=== PATIENT | female | born 1995 | race Caucasian/White ===

== ENCOUNTER 2023-02-04 09:34 | Inpatient (IN) | payer OTHER ==
[~2023-02-04] VITALS: Ht 170.2 cm; Wt 83.2 kg
[2023-02-04] VITALS (41 sets, daily range): BP systolic 98–150; BP diastolic 54–95; PULSE 60–104; TEMP 98.1–99.3
--- NOTE | 2023-02-04 09:40 | NUR ---
Pt arrived on unit ambulatory and with concerns for SROM at 0530 with clear fluid at 0530 this morning. Pt reports contractions starting shortly after SROM and now every 5 minutes with some vaginal bleeding on her george-pad. Pt also reports normal movement. EFM and toco monitors started. Vital signs WNL. SVE by this RN 260/-2 with positive amniotrace and bloody show on exam. Dr. Joseph notified. See physician notificaiton for details.
[2023-02-04] MEDS ORDERED: PRENATAL (09:53)
--- NOTE | 2023-02-04 10:10 | NUR ---
Labor plan of care reviewed with pt and at the bedside. Also reviewed Dr. Joseph's recommendation to start pitocin infusion per augmentation protocol. Pt and both verbalized an understanding, agreed with the plan and states no questions or concerns at this time.
--- NOTE | 2023-02-04 10:20 | NUR ---
1020Thikrysten RN assumes care of pt from Maryan Moscoso RN. Bedside report received. Plan of care discussed with pt who verbalizes understanding. 1030Consent forms explained and signed. 1036Audible variable FHR decel to 70bmp, spontaneous return to baseline. Pt wedge left. 1040IV to left FA. Routine labs obtained. LR infusing. 1052Pitocin reviewed with pt and started at 2mu per orders. Pt resting with call light within reach. 1200Pt noted to be breathing through contractions. Unble to speak with contractions. Requesting epidural. LR bolus initiated. Deniz Gallegos FAM[facility] CENTER DIRECTOR notified.
[2023-02-04 11:00] LABS: BASO % 0.4 % (0.0-2.0); EOS # 0.2 K/mm3 (0.0-0.7); EOS % 1.7 % (0.0-4.0); GRAN # 8.3 K/mm3 (1.4-6.5); GRAN % 78.1 % (42.2-75.2); HEMOGLOBIN 12.3 g/dl (12.5-16.0); LYMPH # 1.2 K/mm3 (1.2-3.4); LYMPH % 11.4 % (20.0-51.0); MEAN CELL VOLUME 93 fl (80.0-100.0); MEAN CORPUSCULAR HEMOGLOBIN 32 pg (27-31); MEAN CORPUSCULAR HGB CONC 35 g/dl (33.0-37.0); MEAN PLATELET VOLUME 9.6 fl (7.4-10.4); MONO # 0.8 K/mm3 (0.1-0.6); MONO % 7.4 % (1.7-9.3); PLATELET COUNT 220 K/mm3 (130-400); RED BLOOD COUNT 3.84 M/mm3 (4.10-5.30); REDCELL DISTRIBUTION WIDTH-CV 13.4 % (11.5-14.5)
[2023-02-04 11:01] LABS: HEMATOCRIT 35.7 % (37.0-47.0)
--- NOTE | 2023-02-04 12:23 | NUR ---
1223C. Rosy GOMEZ at bedside for epidural placement. Pt to edge of bed. FHR tracing intermittently due to maternal position. RN remains at bedside adj. EFM. 1227Epidural placed and single shot at this time by Deniz Gallegos CRNA. See anesthesia record. 1233Patient wedge left. EFM adjusted and tracing well. 1240Patient states pain not improving. Epidural bolus button by patient, and positioned wedge right. 1247Patient continues to report pain is as intense now as it was prior to ARIANA placement. SVE by this RN . Deniz Gallegos CRNA at nurses desk and notified. 1250Patient controlled bolus button pushed by patient. 1300C. Rosy GOMEZ at bedside and discusses plan of care with patient. 1323C. Rosy GOMEZ at bedside. Patient to edge of bed. Epidural removed by provider. FHR difficult to trace due to maternal position. RN remains at bedside adj. EFM. 1329Epidural placed and single shot at this time by Deniz Gallegos CRNA. See anesthesia record. 1334Patient wedge left. EFM adjusted and tracing well. Patient reports pain improving. Will continue to monitor. 1355Patient reports mild "tightness" with ctx. Catheter placed. See flow record. Repositioned left lateral with right leg in stirrup. Pt resting comfortable with call light within reach.
--- NOTE | 2023-02-04 14:19 | NUR ---
1419FHR with recurrent early and variable decels to 70-80bpm. SVE 9.5/100/+2. 1421Dr. Goodpasture updated on pt. See physician notification.
--- NOTE | 2023-02-04 14:48 | NUR ---
1448SVE C/+2. 1450Catheter removed. Patient begins to push with contractions with RN at bedside. 1520Patient continues to push with contractions with RN at bedside. Minimal progress. 1533Patient wedge left. Dr. Joseph updated on pt. See physician notification. 1540C. Rosy SANDING MACHINE OPERATOR OR TENDER updated on patient. Notified pt unable to feel ctx or urge to push. Per C. Rosy SANDING MACHINE OPERATOR OR TENDER, okay to stop epidural infusion. 1541Epidural infusion stopped. 1550Patient to semi-fowlers position. Continues to push with RN at bedside. Slow progress. 1605Patient states she feels more pressure with contractions. Strong maternal effort noted. descent noted with pushes. 1620Dr. Alejandropasture on unit and reviews strips. 1629Dr. Alejandropasture at bedside and reviews plan of care with pt and family. 1639C. Rosy SANDING MACHINE OPERATOR OR TENDER at nurses desk and notified pt feeling more sharp pain with ctx again. Epidural restarted per C. Rosy SANDING MACHINE OPERATOR OR TENDER orders. Dr. Joseph remains at bedside pushing with pt. Strong maternal effort. FHR audible in 110's with recurrent variable decels. 1645Straight cath by Dr. Joseph for 40ml clear urine. Dr. Joseph discusses plan of care to include VAVD. Pt verbalizes understanding and agreeable to vacuum assist. 1653Vacuum applied to occiput by Dr. Joseph. Traction applied via vacuum by Dr. Joseph while pt continues to push with contractions. 1654Vacuum pop off. 1655Vacuum reapplied, per Dr. Joseph, unable to obtain adequate seal with current vacuum. New vacuum requested. 1657Mushroom cup vacuum applied to occiput. 1659Traction applied via vacuum while pt continues to push with contractions. Strong maternal effort. Large crown noted. 1700VAVD of head with complete delivery time of 1700; viable male infant. NC x1, loosened on perineum. 30 second shoulder dystocia noted. See flowsheet. to mother's chest where dried and stimulated by nursery RN. Pitocin paused. 1702Cord clamped x2 and cut by father of . to mother's chest. Care of assumed by S. Tech RN. 1706Spontaneous and intact delivery of placenta. Pitocin to 333ml/hr. Second degree perineal and right vaginal sidewall lacerations repaired by Dr. Joseph. 1716Free flow noted. Methergine IM given per orders. See emar. Fundal massage by Dr. Joseph. 1721Fundus firm, midline, and lochia minimal. Shanon care provided, pads changed, and ice pack to perineum. 4x1cm bruise noted to right labia. Plan of care and safety precautions reviewed with pt and spouse who verbalize understanding. See anesthesia record, doctor dictation, and anesthesia record.
--- NOTE | 2023-02-04 19:46 | NUR ---
BABY TO NURSERY FOR CARES. PATIENT UP TO BATHROOM PER LISA JOSHI. UNABLE TO VOID AT THIS TIME. PERICARE DONE. ICE PACK PLACED. INSTRUCTED ON TUCKS USAGE. TRANSPORTED TO ROOM 215 PER LISA STRONG. ORIENTED TO ROOM. PATIENT TOLERATED WELL.
--- NOTE | 2023-02-04 21:44 | NUR ---
Baby at breast. Patient request up to bathroom to try to void. Unable to void at this time. george care done. Returned to bed Gait steady no c/o dizziness or dyspnea.
[2023-02-05 00:05] VITALS: BP 115/65; PULSE 68; TEMP 98.6
[2023-02-05 07:00] VITALS: BP 108/75; PULSE 76; TEMP 98.1
[2023-02-05] MEDS ORDERED: MOTRIN 800800 MG/TAB PO (07:28)
--- NOTE | 2023-02-05 09:08 | NUR ---
Initial visit; Parents thanked Commercial Loan Analyst for offering congratulations and God's blessings for the of their son. Commercial Loan Analyst thanked family for choosing [facility].
--- NOTE | 2023-02-05 18:55 | NUR ---
Discharge instructions given to pt and spouse who verbalize their understanding. Denies questions. Baby bands cut and pt ambulatory off unit and home with spouse and infant.
== END 2023-02-05 18:55 | disposition home or self-care (01) | DRG 806 ==
LOC: LDRO 09:34 → OB 10:10 → LDR 10:10 → OB 20:00
PROVIDERS: Student in an Organized Health Care Education/Training Program; ADMIT Obstetrics & Gynecology
PROC: 10D07Z6 Extraction of Products of Conception, Vacuum, Via Natural or Artificial Opening (ICD-10-PCS; principal; 2023-02-04)
PROC: 0KQM0ZZ Repair Perineum Muscle, Open Approach (ICD-10-PCS; 2023-02-04)
DX: O48.0 Post-term pregnancy (principal); O72.1 Other immediate postpartum hemorrhage; Z37.0 Single live birth; O76 Abnormality in fetal heart rate and rhythm complicating labor and delivery; O70.1 Second degree perineal laceration during delivery; O26.813 Pregnancy related exhaustion and fatigue, third trimester; O69.1XX0 Labor and delivery complicated by cord around neck, with compression, not applicable or unspecified; Z3A.41 41 weeks gestation of pregnancy
CPT/HCPCS: J2210; J2590; J2795; J7120

== ENCOUNTER 2024-06-16 06:13 | Inpatient (IN) | payer OTHER ==
[2024-06-16] VITALS (29 sets, daily range): BP systolic 11–134; BP diastolic 54–91; PULSE 72–100; TEMP 97.7–98
[~2024-06-16] VITALS: Ht 170.2 cm; Wt 82.3 kg
[~2024-06-16 06:13] MED LIST: MOTRIN 800800 MG/TAB PO; PRENATAL
[2024-06-16] MEDS ORDERED: LR 1,000 ML IV SCH (06:30)
[2024-06-16] MEDS ORDERED: LR & Oxytocin 500 ML IV SCH (06:30)
[2024-06-16 07:35] LABS: BASO % 0.5 % (0.0-2.0); EOS # 0.3 K/mm3 (0.0-0.7); EOS % 4.5 % (0.0-4.0); GRAN # 5.1 K/mm3 (1.4-6.5); GRAN % 66.8 % (42.2-75.2); HEMOGLOBIN 11.3 g/dl (12.5-16.0); LYMPH # 1.5 K/mm3 (1.2-3.4); LYMPH % 19.1 % (20.0-51.0); MEAN CELL VOLUME 95 fl (80.0-100.0); MEAN CORPUSCULAR HEMOGLOBIN 32 pg (27-31); MEAN CORPUSCULAR HGB CONC 33 g/dl (33.0-37.0); MEAN PLATELET VOLUME 9.7 fl (7.4-10.4); MONO # 0.6 K/mm3 (0.1-0.6); MONO % 8.3 % (1.7-9.3); PLATELET COUNT 232 K/mm3 (130-400); RED BLOOD COUNT 3.57 M/mm3 (4.10-5.30); REDCELL DISTRIBUTION WIDTH-CV 13.5 % (11.5-14.5)
--- NOTE | 2024-06-16 08:10 | NUR ---
AT BEDSIDE. FHR TRACING REVIEWED. PLAN OF CARE UPDATED. SVE@ 0811 /2. AROM @ 0812, CLEAR FLUID.
[2024-06-16] MEDS ORDERED: ROPivacaine PF 0.2% 200 ML IV ONE (09:10)
--- NOTE | 2024-06-16 09:27 | NUR ---
0917 JASON SERRATO AT BEDSIDE. PROCEDURE EXPLAINED AND CONSENT OBTAINED. PATIENT SETUP FOR EPIDURAL. 919 DIFFICULTY TRACING FHR DUE TO MATERNAL POSTION. FHR AUDIBLE THROUGH MONITOR. 926 TEST DOSE ADMINISTERED. 929 PATIENT ASSISTED BACK TO WEDGE LEFT POSITION IN BED.
--- NOTE | 2024-06-16 09:45 | NUR ---
0956 PATIENT IS NOT GETTING ADEQUATE PAIN RELIEF FROM EPIDURAL. JASON SERRATO AT BEDSIDE AND MONITORING PATIENT STATUS SINCE EPIDRUAL PLACEMENT. PCEA BOLUS HAS BEEN USED THREE TIMES AND POSITION CHANGES ATTEMPTED. FLUID BOLUS GIVEN TO AVOID MATERNAL BLOOD PRESSURE DECREASE. 1007 JASON SERRATO AT BEDSIDE. EPIDURAL CATHETER ADJUSTED.
--- NOTE | 2024-06-16 09:45 | NUR ---
0945 PATIENT NOT GETTING ADEQUATE COVERAGE FROM EPIDURAL.JASON SERRATO AT BEDSIDE AND MONITORING PATIENT STATUS SINCE EPIDURAL ADMINSITRATION. PCEA HAS BEEN USED THREE TIMES. FLUID BOLUS GIVEN TO AVOID MATERNAL BLODD PRESSURE DECREASE 1007 JASON SERRATO AT BEDSIDE. EPIDURAL CATHETER ADJUSTED.
[2024-06-16] MEDS ORDERED: diphenhydrAMINE 50 MG/ML 1 ML VIAL IV PRN (10:00)
[2024-06-16] MEDS ORDERED: ePHEDrine 50 MG/10 ML VIAL IV PRN (10:00)
[2024-06-16] MEDS ORDERED: diphenhydrAMINE 25 MG CAP PO PRN (10:00)
[2024-06-16] MEDS ORDERED: Naloxone 0.4 MG/ML VIAL IV PRN ×2 (10:00→13:15)
[2024-06-16] MEDS ORDERED: Ondansetron 4 MG/2 ML VIAL IV PRN (10:00)
--- NOTE | 2024-06-16 10:30 | NUR ---
PATIENT HAS CONTINUED TO BE MONITORED BY THIS RN AND JASON SERRATO FOR PAIN RELIEF BUT HAS NOT BEEN ACHEIVED. POSITION CHANGES AND TWO ADDITIONAL PCEA BOLUS DOSES ATTEMPTED WITH NO PROGRESS. 1030 JASON SERRATO AT BEDSIDE TO REMOVE 1ST EPIDURAL CATHETER AND PLACE ANOTHER. 1042 TEST DOSE ADMINISTERED. 1045 PATIENT ASSISTED BACK TO WEDGE LEFT POSITION IN BED.
--- NOTE | 2024-06-16 10:30 | NUR ---
PATIENT HAS CONTINUED TO BE MONITORED BY THIS RN AND JASON SERRATO FOR ADEQUATE PAIN RELIEF BUT IT HAS NOT BEEN ACHEIVED. POSITION CHANGES AND TWO ADDITIONAL PCEA DOSES HAVE BEEN ATTEMPTED WITH NO PROGRESS. 1030 JASON SERRATO AT BEDSIDE TO REMOVE 1ST EPIDURAL CATHETER AND PLACE ANOTHER. SPO2 MONITOR INITIATED. DIFFICULTY TRACING FHR WHILE EPIDURAL BEING PLACED DUE TO MATERNAL POSITION. INTERMITTENTLY TRACING MATERNAL HEART RATE CORRELATES WITH SPO2. 1042 TEST DOSE ADMINISTERED. 1045 PATIENT ASSISTED BACK TO WEDGE LEFT POSITION IN BED. 1050 PATIENT REPORTS INCREASED PAIN RELIEF.
--- NOTE | 2024-06-16 11:57 | NUR ---
1140 SVE /+1. 1143 PROVIDER NOTIFIED THAT PATIENT IS COMPLETE AND +1. PROVIDER NOTIFIED THAT PATIENT IS READY FOR DELIVERY. 1153 AT BEDSIDE. PATIENT SETUP FOR DELIVERY. STOUT CATHETER DISCONTINUED. 1157 OF VIABLE FEMALE . PLACED ON MOTHER'S ABDOMEN. CARE OF GIVEN TO NURSERY RN. PITOCIN STOPPED. 1200 OF PLACENTA. REPAIR OF 1ST DEGREE PERINEAL LACERATION BY . PITOCIN BOLUS INITIATED AT 333ML/HR PER POLICY AND PROTOCOL. FUNDUS FIRM AND BLEEDING WNL.
[2024-06-16] MEDS ORDERED: Loratadine 10 MG TAB PO PRN (12:15)
[2024-06-16] MEDS ORDERED: Magnes Hydrox (MOM) 80 MG/ML 30 ML CUP PO PRN (12:15)
[2024-06-16] MEDS ORDERED: Mag/Al Hydrox/Simeth Susp 30 ML CUP PO PRN (13:15)
[2024-06-16] MEDS ORDERED: Ibuprofen 800 MG TAB PO SCH (13:15)
[2024-06-16] MEDS ORDERED: Measles/Mumps/Rubella Virus Vaccine Live w Diluent 0.5 ML VIAL SQ SCH (13:15)
[2024-06-16] MEDS ORDERED: Acetaminophen 500 MG TAB PO SCH (13:15)
[2024-06-16] MEDS ORDERED: Witch Hazel 50% Pads Bulk TUB TP PRN (13:15)
[2024-06-16] MEDS ORDERED: Phenylephrine/Mineral Oil/Petrolatum 57 GM TUBE RC PRN (13:15)
[2024-06-16] MEDS ORDERED: oxyCODONE 5 MG TAB PO PRN (13:15)
--- NOTE | 2024-06-16 15:15 | NUR ---
PATIENT HELPED TO THE EDGE OF BED. EPIDURAL CATHETER REMOVED. PATIENT ASSISTED X1 RN WITH SERA STEADY TO BATHROOM. PATIENT UNABLE TO VOID. PERICARE COMPLETED.PATIENT ASSISTED X1 RN WITH SERA STEADY TO ROOM. PATIENT ORIENTED TO ROOM.
[2024-06-16] MEDS ORDERED: Sennosides/Docusate 8.6-50 MG TAB PO SCH (17:00)
[2024-06-16] MEDS ORDERED: traZODone 50 MG TAB PO PRN (21:00)
[2024-06-17 08:30] VITALS: BP 120/76; PULSE 72; TEMP 98
--- NOTE | 2024-06-17 09:59 | NUR ---
Initial visit; Patient thanked Rubber Chemist for looking in on her family and offering congratulations and God's blessings for the of their daughter. Rubber Chemist thanked family for choosing [facility].
== END 2024-06-17 14:02 | disposition home or self-care (01) | DRG 560 ==
LOC: LDR 06:13 → OB 10:56
PROVIDERS: ADMIT Obstetrics & Gynecology
PROC: 10E0XZZ Delivery of Products of Conception, External Approach (ICD-10-PCS; principal; 2024-06-16)
PROC: 0HQ9XZZ Repair Perineum Skin, External Approach (ICD-10-PCS; 2024-06-16)
PROC: 10907ZC Drainage of Amniotic Fluid, Therapeutic from Products of Conception, Via Natural or Artificial Opening (ICD-10-PCS; 2024-06-16)
PROC: 3E033VJ Introduction of Other Hormone into Peripheral Vein, Percutaneous Approach (ICD-10-PCS; 2024-06-16)
DX: O70.0 First degree perineal laceration during delivery (principal); Z37.0 Single live birth; O28.3 Abnormal ultrasonic finding on antenatal screening of mother; Z3A.39 39 weeks gestation of pregnancy
CPT/HCPCS: J2590; J2795; J7120